=== PATIENT | female | born 1995 | race American Indian/Alaskan Native ===

== ENCOUNTER 2018-06-16 19:46 | Emergency (ER) | payer MEDICAID ==
[2018-06-16 19:52] VITALS: BP 120/74
--- NOTE | 2018-06-16 20:21 | Emergency Department Report ---
Blank Doc - Documentation Documentation: This is a 22-year-old female with vaginal bleeding. denies any pelvic pa in. This initial assessment/diagnostic orders/clinical plan/treatment(s) is/are subject to change based on patient's health status, clinical progression and re- assessment by fellow clinical providers in the ED. Further treatment and workup at subsequent clinical providers discretion. Patient/guardians urged not to elope from the ED as their condition may be serious if not clinically assessed and managed. Initial orders include: 1- Patient sent to [facility] for further evaluation and treatment 2- labs 3- US OB 4- UA
[2018-06-16 20:48] LABS: Basophils # (Auto) 0.1 K/mm3 (0.0-0.1); Basophils % (Auto) 0.6 % (0.0-1.8); Eosinophils # (Auto) 0.1 K/mm3 (0.0-0.4); Eosinophils % (Auto) 1.2 % (0.0-4.3); Hemoglobin 14.1 gm/dl (10.1-14.3); Lymphocytes # (Auto) 2.6 K/mm3 (1.2-5.4); Lymphocytes % (Auto) 25.9 % (13.4-35.0); Mean Corpuscular HGB Conc 34 % (30-34); Mean Corpuscular Volume 90 fl (79-97); Monocytes # (Auto) 0.6 K/mm3 (0.0-0.8); Monocytes % (Auto) 6.5 % (0.0-7.3); Platelet Count 205 K/mm3 (140-440); Red Blood Count 4.67 M/mm3 (3.65-5.03); Red Cell Distribution Width 12.9 % (13.2-15.2)
[2018-06-16 20:49] LABS: Bilirubin,Urine NEG (Negative); Blood,Urine LG (Negative); Color,Urine Colorless (Yellow); Protein,Urine <15 mg/dL mg/dL (Negative); Urobilinogen,Urine < 2.0 mg/dL (<2.0)
--- NOTE | 2018-06-17 01:32 | Emergency Department Report ---
ED Abdominal Pain HPI - General Chief Complaint: Vaginal Bleeding Stated Complaint: POSSIBLE MISCARRIAGE Time Seen by Provider: 06/16/18 20:20 Source: patient Mode of arrival: Ambulatory Limitations: No Limitations - History of Present Illness Initial Comments: She is a 22-year-old female who presents to the ER today with vaginal bleeding. She had a positive test at an outpatient clinic. She also reports some abdominal cramping. This is her first . The first day of her last menstrual cycle was 05/08/2018. Severity scale (0 -10): 5 - Related Data Home Medications Medication Instructions Recorded Confirmed Last Taken No Known Home Medications [No 06/28/14 06/28/14 Unknown Reported Home Medications] Allergies Allergy/AdvReac Type Severity Reaction Status Date / Time No Known Allergies Allergy Unverified 06/28/14 20:31 ED Review of Systems ROS: Stated complaint: POSSIBLE MISCARRIAGE Other details as noted in HPI Comment: All other systems reviewed and negative ED Past Medical Hx - Past Medical History Previous Medical History?: No - Surgical History Past Surgical History?: No - Family History Family history: no significant - Social History Smoking Status: Never Smoker Substance Use Type: None - Medications Home Medications: Home Medications Medication Instructions Recorded Confirmed Last Taken Type No Known Home Medications [No 06/28/14 06/28/14 Unknown History Reported Home Medications] ED Physical Exam - General Limitations: No Limitations General appearance: alert - Head Head exam: Present: atraumatic, normocephalic - ENT ENT exam: Present: mucous membranes moist - Neck Neck exam: Present: normal inspection, tenderness - Respiratory Respiratory exam: Present: normal lung sounds bilaterally - Cardiovascular Cardiovascular Exam: Present: regular rate, normal rhythm (100 on exam) - GI/Abdominal GI/Abdominal exam: Present: soft, normal bowel sounds - Rectal Rectal exam: Present: deferred - Extremities Exam Extremities exam: Present: normal inspection, full ROM - Back Exam Back exam: Present: normal inspection, full ROM - Neurological Exam Neurological exam: Present: alert, oriented X3, CN II-XII intact - Psychiatric Psychiatric exam: Present: normal affect, normal mood - Skin Skin exam: Present: warm, dry, intact ED Course Vital Signs 06/16/18 06/16/18 19:51 20:25 Temperature 98.3 F 98.3 F Pulse Rate 117 H 117 H Respiratory 16 18 Rate Blood Pressure 120/74 120/74 O2 Sat by Pulse 100 100 Oximetry ED Medical Decision Making - Lab Data Result diagrams: 06/16/18 20:34 - Radiology Data Radiology results: report reviewed, image reviewed Vital Signs 06/16/18 06/16/18 19:51 20:25 Temperature 98.3 F 98.3 F Pulse Rate 117 H 117 H Respiratory 16 18 Rate Blood Pressure 120/74 120/74 O2 Sat by Pulse 100 100 Oximetry Lab Results 06/16/18 06/16/18 06/16/18 Range/Units 20:30 20:34 20:34 WBC 9.9 (4.5-11.0) K/mm3 RBC 4.67 (3.65-5.03) M/mm3 Hgb 14.1 (10.1-14.3) gm/dl Hct 42.0 (30.3-42.9) % MCV 90 (79-97) fl MCH 30 (28-32) pg MCHC 34 (30-34) % RDW 12.9 L (13.2-15.2) % Plt Count 205 (140-440) K/mm3 Lymph % (Auto) 25.9 (13.4-35.0) % [place] % (Auto) 6.5 (0.0-7.3) % Eos % (Auto) 1.2 (0.0-4.3) % Baso % (Auto) 0.6 (0.0-1.8) % Lymph # 2.6 (1.2-5.4) K/mm3 [place] # 0.6 (0.0-0.8) K/mm3 Eos # 0.1 (0.0-0.4) K/mm3 Baso # 0.1 (0.0-0.1) K/mm3 Seg Neutrophils % 65.8 (40.0-70.0) % Seg Neutrophils # 6.5 (1.8-7.7) K/mm3 HCG, Quant 110.2 H (0-4) mIU/mL Urine Color Colorless (Yellow) Urine Turbidity Clear (Clear) Urine pH 7.0 (5.0-7.0) Ur Specific [place] 1.003 (1.003-1.030) Urine Protein <15 mg/dl (Negative) mg/dL Urine Glucose (UA) Neg (Negative) mg/dL Urine Ketones Neg (Negative) mg/dL Urine Blood Lg (Negative) Urine Nitrite Neg (Negative) Urine Bilirubin Neg (Negative) Urine Urobilinogen < 2.0 (<2.0) mg/dL Ur Leukocyte Esterase Neg (Negative) Urine WBC (Auto) 1.0 (0.0-6.0) /HPF Urine RBC (Auto) 3.0 (0.0-6.0) /HPF U Epithel Cells (Auto) 1.0 (0-13.0) /HPF us noted discussed with pt ultrasound report and hcg she is to follow up for repeat exam by obgyn ma home with ma plan of care. - Medical Decision Making Lab Results 06/16/18 06/16/18 06/16/18 Range/Units 20:30 20:34 20:34 WBC 9.9 (4.5-11.0) K/mm3 RBC 4.67 (3.65-5.03) M/mm3 Hgb 14.1 (10.1-14.3) gm/dl Hct 42.0 (30.3-42.9) % MCV 90 (79-97) fl MCH 30 (28-32) pg MCHC 34 (30-34) % RDW 12.9 L (13.2-15.2) % Plt Count 205 (140-440) K/mm3 Lymph % (Auto) 25.9 (13.4-35.0) % [place] % (Auto) 6.5 (0.0-7.3) % Eos % (Auto) 1.2 (0.0-4.3) % Baso % (Auto) 0.6 (0.0-1.8) % Lymph # 2.6 (1.2-5.4) K/mm3 [place] # 0.6 (0.0-0.8) K/mm3 Eos # 0.1 (0.0-0.4) K/mm3 Baso # 0.1 (0.0-0.1) K/mm3 Seg Neutrophils % 65.8 (40.0-70.0) % Seg Neutrophils # 6.5 (1.8-7.7) K/mm3 HCG, Quant 110.2 H (0-4) mIU/mL Urine Color Colorless (Yellow) Urine Turbidity Clear (Clear) Urine pH 7.0 (5.0-7.0) Ur Specific [place] 1.003 (1.003-1.030) Urine Protein <15 mg/dl (Negative) mg/dL Urine Glucose (UA) Neg (Negative) mg/dL Urine Ketones Neg (Negative) mg/dL Urine Blood Lg (Negative) Urine Nitrite Neg (Negative) Urine Bilirubin Neg (Negative) Urine Urobilinogen < 2.0 (<2.0) mg/dL Ur Leukocyte Esterase Neg (Negative) Urine WBC (Auto) 1.0 (0.0-6.0) /HPF Urine RBC (Auto) 3.0 (0.0-6.0) /HPF U Epithel Cells (Auto) 1.0 (0-13.0) /HPF Vital Signs 06/16/18 06/16/18 19:51 20:25 Temperature 98.3 F 98.3 F Pulse Rate 117 H 117 H Respiratory 16 18 Rate Blood Pressure 120/74 120/74 O2 Sat by Pulse 100 100 Oximetry hcg noted labs noted h/h stable minimal bleeding in ER no pain ambulatory nontoxic afebrile us noted discussed findings with mother and pt she will follow up with obgyn in the AM PT DID NOT WANT TO WAIT FOR THE ABO THE BLOOD BANK IS NOT AVAILABLE TO RUN THE RH UNTIL 0500 PLEASE CALL THE PT AT [phone] at the time of discharge abo was pending - it was not ordered in triage. need to call pt with the results. [phone] Critical care attestation.: If time is entered above; I have spent that time in minutes in the direct care of this critically ill patient, excluding procedure time. ED Disposition Clinical Impression: Miscarriage Disposition: DC-01 TO HOME OR SELFCARE Is pt being admited?: No Does the pt Need Aspirin: No Condition: Stable Additional Instructions: hcg 110 pelvic rest hydrate well with water tylenol for pain call OBGYN in AM you will need follow up labs Referrals: DOMINIC FAJARDO MD [Primary Care Provider] - 3-5 Days AVELINA RAYA MD [Staff Physician] - 3-5 Days Time of Disposition: 03:13
--- NOTE | 2018-06-17 04:21 | Ultrasound Report ---
PROCEDURE: US OB <= 14 WEEKS FETUS TECHNIQUE: Real-time transabdominal sonography of the uterus, placenta, amniotic fluid, adnexa, and fetus was performed with image documentation. Measurements were obtained to determine age/size. M-mode Doppler was used to document heartbeat. ADDITIONAL GESTATION: None. HISTORY: vaginal bleeding COMPARISONS: None . FINDINGS: No evidence of intrauterine or ectopic is identified. Uterus measures 10.3 x 4.2 x 5.2 cm. Endometrium is thickened at 8.7 mm. Right ovary measures 2.7 x 1.8 x 2.2 cm. There is a 1.1 cm complex cyst. Left ovary measures 4.5 x 1.8 x 2.9 cm. There is a 2.1 cm complex cyst. There is fluid around the lef t ovary. IMPRESSION: There is no specific evidence of intrauterine or ectopic . There is no ovarian torsion. Red elation with serial beta hCG measurements may be helpful. This document is electronically signed by Adam Miller MD., June 17 2018 04:19:51 AM ET
--- NOTE | 2018-06-17 04:22 | Ultrasound Report ---
PROCEDURE: US OB TRANSVAGINAL TECHNIQUE: Real-time transvaginal sonography of the uterus, placenta, amniotic fluid, adnexa, and fe tus was performed with image documentation. Measurements were obtained to determine age/size. M -mode Doppler was used to document heartbeat. ADDITIONAL GESTATION: None. HISTORY: vaginal bleeding COMPARISONS: None . FINDINGS: No evidence of intrauterine or ectopic is identified. Uterus measures 10.3 x 4.2 x 5.2 cm. Endometrium is thickened at 8.7 mm. Right ovary measures 2.7 x 1.8 x 2.2 cm. There is a 1.1 cm complex cyst. Left ovary measures 4.5 x 1.8 x 2.9 cm. There is a 2.1 cm complex cyst. There is fluid around the lef t ovary. IMPRESSION: There is no specific evidence of intrauterine or ectopic . There is no ovarian torsion. Red elation with serial beta hCG measurements may be helpful. This document is electronically signed by Adam Miller MD., June 17 2018 04:20:30 AM ET
== END 2018-06-17 04:30 | disposition home or self-care (01) ==
LOC: ED 19:46
DX: O03.9 Complete or unspecified spontaneous abortion without complication (principal); Z3A.01 Less than 8 weeks gestation of pregnancy
CPT/HCPCS: 36415; 76801; 76817; 81001; 84702; 85025; 86900; 86901; 99284